=== PATIENT | female | born 1955 | race African-American/Black ===

== ENCOUNTER 2016-04-09 20:06 | Emergency (ER) | payer SELFPAY ==
--- NOTE | 2016-04-09 20:54 | EDM.PDOC ---
ED HISTORY OF PRESENT ILLNESS - General Chief Complaint: Respiratory Problem Stated Complaint: COUGH/ PAIN RT SHOULDER Time Seen by Provider: 04/09/16 20:30 Source of Information: Reports: Patient History Limitations: Reports: No limitations - History of Present Illness INITIAL COMMENTS - FREE TEXT/NARRATIVE: HISTORY AND PHYSICAL: History of present illness: [Patient comes to the emergency room complaining of cough for the past 3 weeks. Has worsened over the past 4-5 days with constant coughing. She complains of across her back is not coughing. She is not getting out much sputum. She's not had fever or chills. No generalized body aches or pains. No runny nose or earache. She's taken some [id number] antihistamines which has provided minimal improvement of symptoms. No abdominal pain, nausea vomiting. She is currently not working.] Review of systems: As per history of present illness and below otherwise all systems reviewed and negative. Past medical history: As per history of present illness and as reviewed below otherwise noncontributory. Surgical history: As per history of present illness and as reviewed below otherwise noncontributory. Social history: No reported history of drug or alcohol abuse. Family history: As per history of present illness and as reviewed below otherwise noncontributory. Physical exam: General: Well-developed well-nourished dark skinned female in no acute distress. She coughs frequently throughout exam. HEENT: Atraumatic, normocephalic. TMs are pearly ballesteros bilaterally. Oral mucous membranes are pink and moist without tonsillar swelling erythema or exudate. neck supple, no lymphadenopathy. nontender. Lungs: Clear to auscultation, breath sounds equal bilaterally, chest nontender. Heart: S1S2, regular, negative for clicks, rubs, or JVD. Abdomen: Soft, nondistended, nontender. Genitourinary: Deferred. Rectal: Deferred. Extremities: Atraumatic, negative for cords or calf pain. No swelling or cyanosis to feet or lower legs. Neurovascular unremarkable. Neuro: Awake, alert, oriented. Motor and sensory unremarkable throughout. Exam nonfocal. Diagnostics: [Chest x-ray, CBC] Therapeutics: [DuoNeb] Impression: [Bronchitis] Plan: [Patient's coughing improved significantly following DuoNeb treatment. No wheezing crackles or rales on examination. [facility] Patient is instructed how to use by DERMATOLOGY NURSE PRACTITIONER. Supportive measures as discussed. Establish care with local PCP.] Definitive disposition and diagnosis as appropriate pending reevaluation and review of above. - Related Data Allergies/ADRs: Allergies Allergy/AdvReac Type Severity Reaction Status Date / Time Tetracyclic Antidepressants Allergy Chest Pain Verified 04/09/16 20:57 tetracycline Allergy Chest Pain Verified 04/09/16 20:57 Tetracyclines Allergy Chest Pain Verified 04/09/16 20:57 Home Meds: Home Meds . [No Known Home Meds] 04/09/16 [History] ED ROS GENERAL - Review of Systems Review Of Systems: ROS reveals no pertinent complaints other than HPI. ED EXAM, GENERAL - Physical Exam Exam: See Below Course - Vital Signs Last Recorded V/S: Last Vital Signs Temp 98.2 F 04/09/16 20:57 Pulse 101 H 04/09/16 20:57 Resp 19 04/09/16 20:57 BP 132/88 04/09/16 20:57 Pulse Ox 95 04/09/16 20:57 - Orders/Labs/Meds Orders: Active Orders 24 hr Category Date Time Status RT Aerosol Therapy [RC] ASDIRECTED Care 04/09/16 21:26 Active Chest 2V [CR] Stat Exams 04/09/16 20:48 Taken CBC WITH AUTO DIFF [HEME] Stat Lab 04/09/16 21:01 Received Labs: Laboratory Tests 04/09/16 Range/Units 21:01 WBC 10.06 (4.0-11.0) K/uL RBC 5.49 (4.30-5.90) M/uL Hgb 12.5 (12.0-16.0) g/dL Hct 40.7 (36.0-46.0) % MCV 74.1 L (80.0-98.0) fL MCH 22.8 L (27.0-32.0) pg MCHC 30.7 L (31.0-37.0) g/dL RDW Std Deviation 42.3 (28.0-62.0) fl RDW Coeff of Moe 16 H (11.0-15.0) % Plt Count 310 (150-400) K/uL MPV 10.60 (7.40-12.00) fL Add Manual Diff YES Nucleated RBC % 0.0 /100WBC Nucleated RBCs # 0 K/uL Meds: Medications Discontinued Medications Generic Name Dose Route Start Last Admin Trade Name Ebenezer PRN Reason Stop Dose Admin Albuterol/Ipratropium 3 ml 04/09/16 21:26 04/09/16 21:31 Duoneb 3.0-0.5 Mg/3 Ml NEB 04/09/16 21:27 3 ml ONETIME ONE Administration Departure - Departure Time of Disposition: 21:50 Disposition: Home, Self-Care 01 Condition: good Clinical Impression: Bronchitis Forms: ED Department Discharge Additional Instructions: The following information is given to patients seen in the emergency department who are being discharged to home. This information is to outline your options for follow-up care. We provide all patients seen in our emergency department with a follow-up referral. The need for follow-up, as well as the timing and circumstances, are variable depending upon the specifics of your emergency department visit. If you don't have a primary care physician on staff, we will provide you with a referral. We always advise you to contact your personal physician following an emergency department visit to inform them of the circumstance of the visit and for follow-up with them and/or the need for any referrals to a consulting specialist. The emergency department will also refer you to a specialist when appropriate. This referral assures that you have the opportunity for follow-up care with a specialist. All of these measure are taken in an effort to provide you with optimal care, which includes your follow-up. Under all circumstances we always encourage you to contact your private physician who remains a resource for coordinating your care. When calling for follow-up care, please make the office aware that this follow-up is from your recent emergency room visit. If for any reason you are refused follow-up, please contact the [facility] emergency department at and asked to speak to the emergency department charge nurse. [address] [address] Establish care with a provider at the clinic listed above. Use inhaler 1-2 puffs every 4-6 hours as needed for cough, wheezing, shortness of breath. Return to ER as needed as discussed. - My Orders Last 24 Hours: My Active Orders 04/09/16 20:48 Chest 2V [CR] Stat 04/09/16 21:01 CBC WITH AUTO DIFF [HEME] Stat 04/09/16 21:26 RT Aerosol Therapy [RC] ASDIRECTED - Assessment/Plan Last 24 Hours: My Active Orders 04/09/16 20:48 Chest 2V [CR] Stat 04/09/16 21:01 CBC WITH AUTO DIFF [HEME] Stat 04/09/16 21:26 RT Aerosol Therapy [RC] ASDIRECTED
[2016-04-09 21:00] VITALS: BP 132/88
[2016-04-09] MEDS ORDERED: Albuterol/Ipratropium 3.0-0.5 MG/3 ML Neb Soln NEB ONE (21:26)
--- NOTE | 2016-04-10 19:00 | CR ---
EXAM DATE: 04/09/16 PATIENT'S AGE: 60 Patient: SHEELA AHUJA Facility: [place], [place] Site . Site : [id number] Study: XRay Chest [id number] 9:19:06 PM Ordering Physician: Doctor Prieto Final Report: INDICATION: cough INDICATION: Cough. TECHNIQUE: Chest 2 views. COMPARISON: None FINDINGS: Cardiovascular and mediastinum: Heart size and vasculature are normal in caliber and appearance. Mediastinum is within normal limits. Lungs and pleural spaces: Lungs are clear. No sign of infiltrate or mass. No sign of pleural effusion. No pneumothorax. Bones and soft tissues: No significant findings. IMPRESSION: Unremarkable chest. Dictated by Chicho Polanco MD @ 04/09/2016 9:40:08 PM Dictated by: Chicho Polanco MD @ 04/09/2016 21:40:15 (Electronic Signature) Report Signed by Proxy and Original Signed Document filed in the Medical Record. MTDD
== END 2016-04-09 22:14 | disposition home or self-care (01) ==
LOC: MW.ED 20:06
DX: J40 Bronchitis, not specified as acute or chronic (principal); Z88.8 Allergy status to other drugs, medicaments and biological substances
CPT/HCPCS: 36415; 71020; 71020-26; 85025; 94664; 99283; 99284

== ENCOUNTER 2016-04-19 23:38 | Emergency (ER) | payer SELFPAY ==
[2016-04-20] MEDS: Albuterol/Ipratropium 3.0-0.5 MG/3 ML Neb Soln NEB ONE (00:01)
[2016-04-20] MEDS: predniSONE 20 MG Tab PO ONE (00:01)
--- NOTE | 2016-04-20 00:02 | EDM.PDOC ---
ED HPI GENERAL MEDICAL PROBLEM - General Chief Complaint: General Stated Complaint: COUGH Time Seen by Provider: 04/19/16 23:48 - History of Present Illness INITIAL COMMENTS - FREE TEXT/NARRATIVE: HISTORY AND PHYSICAL: History of present illness: The patient is a 60-year-old female with no stated chronic medical problems who presents with persistent cough that has been ongoing or about one month. Patient was seen here in the emergency Department 10 days ago with 3 weeks of dry hacking cough and was evaluated with a chest x-ray CBC and receive a duo neb. Those test results of been reviewed by me and they are negative. The patient was given an albuterol inhaler but states that she was not sure how to use it so she has not used it over the last 10 days. She states the cough has persisted it is dry and hacking but she does not feel short of breath and there is no phlegm fever chills vomiting or diarrhea. She has no abdominal pain but she only has chest wall pain with the coughing. The patient has not called to make a followup appointment since her ER visit. The patient states she has a postnasal drip and has been taking Claritin for that but has no sore throat Review of systems: As per history of present illness and below otherwise all systems reviewed and negative. Past medical history: As per history of present illness and as reviewed below otherwise noncontributory. Surgical history: As per history of present illness and as reviewed below otherwise noncontributory. Social history: No reported history of drug or alcohol abuse. Family history: As per history of present illness and as reviewed below otherwise noncontributory. Physical exam: General: Well-developed well-nourished female who is nontoxic and his vitals have been reviewed by me. She has a dry hacking spastic cough in the ER but is speaking clearly. HEENT: Atraumatic, normocephalic, pupils reactive, negative for conjunctival pallor or scleral icterus, mucous membranes moist, throat clear, neck supple, nontender, trachea midline. Lungs: Scattered expiratory wheezing throughout all steele without stridor or sensory muscle use or work of breathing, breath sounds equal bilaterally, chest nontender. Heart: S1S2, regular, negative for clicks, rubs, or JVD. Abdomen: Soft, nondistended, nontender. NABS Genitourinary: Deferred. Rectal: Deferred. Extremities: Atraumatic, negative for cords or calf pain. Neurovascular unremarkable. No pedal edema or leg asymmetry Neuro: Awake, alert, oriented. Cranial nerves II through XII unremarkable. Cerebellum unremarkable. Motor and sensory unremarkable throughout. Exam nonfocal. Diagnostics: Therapeutics: Duo neb prednisone It appears that the patient has not been using her inhaler and we will give her spacer today and encourage appropriate use of this medication to help with her bronchospasm. I will also give her a burst of steroids as this may help with this inflammatory process. As she does not have a productive cough and that has not changed she is not hypoxic or febrile or have any history of fevers I will not repeat the labs or chest x-ray there were performed 10 days ago. The patient has been encouraged to continue with hydration and to get followup in the clinic for further testing. Patient feels much improved after the DuoNeb and is not having any coughing and is agreeable to care plan as above Impression: Bronchospasm with spastic cough, bronchitis, noncompliant with outpatient treatment plan Definitive disposition and diagnosis as appropriate pending reevaluation and review of above. - Related Data Allergies Allergy/AdvReac Type Severity Reaction Status Date / Time Tetracyclic Antidepressants Allergy Chest Pain Verified 04/09/16 20:57 tetracycline Allergy Chest Pain Verified 04/09/16 20:57 Tetracyclines Allergy Chest Pain Verified 04/09/16 20:57 Home Meds: Home Meds . [No Known Home Meds] 04/09/16 [History] Past Medical History - Past Health History Medical/Surgical History: Denies Medical/Surgical History HEENT History: Reports: None Other Cardiovascular History: Mitral valve prolapse Respiratory History: Reports: None Gastrointestinal History: Reports: None Genitourinary History: Reports: None RISK CONTROL DIRECTOR History: Reports: None Musculoskeletal History: Reports: None Neurological History: Reports: None Psychiatric History: Reports: None Endocrine/Metabolic History: Reports: None Dermatologic History: Reports: None - Infectious Disease History Infectious Disease History: Reports: Chicken pox, Measles Social & Family History - Family History Family Medical History: Noncontributory - Tobacco Use Smoking Status *Q: Never Smoker Second Hand Smoke Exposure: Yes - Caffeine Use Caffeine Use: Reports: None - Recreational Drug Use Recreational Drug Use: No ED ROS GENERAL - Review of Systems Review Of Systems: ROS reveals no pertinent complaints other than HPI. ED EXAM, GENERAL - Physical Exam Exam: See Below (See dictation) Course - Vital Signs Last Recorded V/S: Last Vital Signs Temp 36.6 C 04/19/16 23:44 Pulse 88 04/19/16 23:44 Resp 18 04/19/16 23:44 BP 154/73 H 04/19/16 23:44 Pulse Ox 97 04/19/16 23:44 - Orders/Labs/Meds Orders: Active Orders 24 hr Category Date Time Status Communication Order [RC] STAT Care 04/19/16 23:58 Active RT Aerosol Therapy [RC] ASDIRECTED Care 04/19/16 23:52 Active Meds: Medications Discontinued Medications Generic Name Dose Route Start Last Admin Trade Name Freq PRN Reason Stop Dose Admin Albuterol/Ipratropium 3 ml 04/19/16 23:52 04/20/16 00:01 Duoneb 3.0-0.5 Mg/3 Ml NEB 04/19/16 23:53 3 ml ONETIME ONE Administration Prednisone 40 mg 04/19/16 23:57 04/20/16 00:01 Prednisone PO 04/19/16 23:58 40 mg ONETIME ONE Administration Departure - Departure Time of Disposition: 00:20 Disposition: Home, Self-Care 01 Condition: good Clinical Impression: Bronchitis, Bronchospasm Referrals: PCP,None [Primary Care Provider] - Forms: ED Department Discharge Additional Instructions: The following information is given to patients seen in the emergency department who are being discharged to home. This information is to outline your options for follow-up care. We provide all patients seen in our emergency department with a follow-up referral. The need for follow-up, as well as the timing and circumstances, are variable depending upon the specifics of your emergency department visit. If you don't have a primary care physician on staff, we will provide you with a referral. We always advise you to contact your personal physician following an emergency department visit to inform them of the circumstance of the visit and for follow-up with them and/or the need for any referrals to a consulting specialist. The emergency department will also refer you to a specialist when appropriate. This referral assures that you have the opportunity for followup care with a specialist. All of these measure are taken in an effort to provide you with optimal care, which includes your followup. Under all circumstances we always encourage you to contact your private physician who remains a resource for coordinating your care. When calling for followup care, please make the office aware that this follow-up is from your recent emergency room visit. If for any reason you are refused follow-up, please contact the [facility] emergency department at and ask to speak to the emergency department charge nurse. [facility] Primary care- Internal Medicine and Family [address] [address] Please use the inhaler that you're given on her last visit with a spacer as shown today in the ER. Take 1-2 puffs via the spacer every 4-6 hours for the next 2 days and then every 6 hours as needed after 2 days. Please continue with [id number] Claritin or Benadryl to help decongest. Please push hydration as we discussed and take the prednisone you have been prescribed. Please call and followup in the clinic for further care and evaluation and return to the ER as needed and as discussed. These also use the cough medicine you had been prescribed, Phenergan with codeine, as needed for cough but only take when you are home. - My Orders Last 24 Hours: My Active Orders 04/19/16 23:52 RT Aerosol Therapy [RC] ASDIRECTED 04/19/16 23:58 Communication Order [RC] STAT - Assessment/Plan Last 24 Hours: My Active Orders 04/19/16 23:52 RT Aerosol Therapy [RC] ASDIRECTED 04/19/16 23:58 Communication Order [RC] STAT
[2016-04-20 00:36] VITALS: BP 134/61
== END 2016-04-20 00:35 | disposition home or self-care (01) ==
LOC: MW.ED 23:38
DX: J40 Bronchitis, not specified as acute or chronic (principal); J98.01 Acute bronchospasm; Z88.6 Allergy status to analgesic agent; Z88.8 Allergy status to other drugs, medicaments and biological substances
CPT/HCPCS: 99283; A9270; 99284

== ENCOUNTER 2021-03-17 10:31 | Emergency (ER) | payer SELFPAY ==
[2021-03-17 11:43] LABS: BLOOD UREA NITROGEN,BUN 14 mg/dL (7.0-18.0); CARBON DIOXIDE,CO2 24.5 mmol/L (21.0-32.0); CHLORIDE,CL 103 mmol/L (98-107); GLUCOSE RANDOM 113 mg/dL (74-106); POTASSIUM,K 4.1 mmol/L (3.5-5.1); SODIUM,NA 139 mmol/L (136-145)
[2021-03-17] MEDS: Nitroglycerin 0.4 MG Tab.SL SL PRN ×2 (12:02→12:17)
[2021-03-17 12:45] VITALS: BP 150/85; PULSE 72
== END 2021-03-17 12:37 | disposition home or self-care (01) ==
LOC: MW.ED 10:31
DX: J40 Bronchitis, not specified as acute or chronic (principal); I10 Essential (primary) hypertension; Z88.1 Allergy status to other antibiotic agents
CPT/HCPCS: 36415; 71045; 71045-26; 80053; 83735; 83880; 84484; 85025; 86140; 87804; 93005; 99285-25; A9270-GY; U0002